=== PATIENT | female | born 1970 | race Caucasian/White ===

== ENCOUNTER 2018-12-24 16:32 | Emergency (ER) | payer BC, MEDICAID ==
[~2018-12-24] VITALS: Ht 167.6 cm; Wt 119.0 kg
[~2018-12-24 16:32] MED LIST: PANT20TA2 PO; ZOF4T PO
[2018-12-24 16:36] VITALS: BP 120/78
--- NOTE | 2018-12-24 16:44 | NUR ---
VASC ON WAY
--- NOTE | 2018-12-24 16:55 | NUR ---
US at bedside
--- NOTE | 2018-12-24 16:56 | NUR ---
VASC IN ROOM W/ PT
== END 2018-12-24 17:32 | disposition home or self-care (01) ==
LOC: ER 16:32
DX: R60.0 Localized edema (principal); I10 Essential (primary) hypertension; K21.9 Gastro-esophageal reflux disease without esophagitis; Z88.0 Allergy status to penicillin; Z88.2 Allergy status to sulfonamides; Z79.899 Other long term (current) drug therapy
CPT/HCPCS: 93971; 99284